=== PATIENT | male | born 1995 | race Caucasian/White ===

== ENCOUNTER 2016-05-11 15:15 | Emergency (ER) | payer OTHER ==
[~2016-05-11] VITALS: Ht 170.2 cm; Wt 59.1 kg
[~2016-05-11 15:15] MED LIST: ANUSOL HC CREAM30 GM TP
[2016-05-11 15:18] VITALS: BP 135/76; PULSE 91; TEMP 97.5
[2016-05-11] MEDS ORDERED: ANUSOL-HC2.5% RC (17:23)
== END 2016-05-11 17:29 | disposition home or self-care (01) ==
LOC: COL.ER 15:15
DX: K64.4 Residual hemorrhoidal skin tags (principal)